=== PATIENT | male | born 1940 | race Caucasian/White ===

== ENCOUNTER 2017-05-09 12:58 | Inpatient (IN) | payer MEDICARE ==
[2017-05-04 15:45] LABS: BASOPHILS % (AUTO) 0.2 % (0-1); EOSINOPHILS # (AUTO) 0.2 X10'3 (0-0.9); EOSINOPHILS % (AUTO) 1.6 % (0-6); MEAN CORPUSCULAR HGB CONC 33.4 % (33.0-36.5); MEAN CORPUSCULAR VOLUME 86.8 FL (78-98); MEAN PLATELET VOLUME 7.1 FL (7.4-10.4); MONOCYTES # (AUTO) 0.9 X10'3 (0-0.9); MONOCYTES % (AUTO) 9.7 % (2-12); NEUTROPHILS # (AUTO) 7.5 X10'3 (1.8-7.7); NEUTROPHILS % (AUTO) 78.5 % (42-75); PRE OP HEMATOCRIT 39.1 % (42.0-52.0); PRE OP HEMOGLOBIN 13.1 g/dL (14.0-17.9); PRE OP PLATELET COUNT 304 X10'3 (140-440); RED CELL DISTRIBUTION WIDTH 16.1 % (11.5-14.5)
[2017-05-04 15:49] LABS: CLARITY,URINE Clear (Clear); COLOR,URINE Yellow (Yellow); GLUCOSE, URINE Negative (Neg); KETONES,URINE Negative (Neg); LEUKOCYTE ESTERASE ,URINE Negative (Neg); NITRITES, URINE Negative (Neg); OCCULT BLOOD,URINE Negative (Neg); PH,URINE 5.5 (4.8-8.0); PROTEIN,URINE Negative (Neg)
[2017-05-04 15:51] LABS: UA COLLECTION TYPE VOIDED
[2017-05-04 15:53] LABS: PRE OP PROTIME 10.7 SECONDS (9.0-12.0)
[2017-05-04 16:01] LABS: ALBUMIN 3.7 G/DL (3.4-5.0); ALBUMIN/GLOBULIN RATIO 1.1 (1.1-1.5); ALKALINE PHOSPHATASE 116 IU/L (46-116); BLOOD UREA NITROGEN 21 MG/DL (7-18); BUN/CREATININE RATIO 20.4 (5.4-32.0); CALCIUM 8.9 MG/DL (8.5-10.1); CHLORIDE 106 MMOL/L (99-107); CREATININE 1.03 MG/DL (0.60-1.10); PRE OP ALT 31 U/L (30-65); PRE OP ANION GAP 8 (8-16); PRE OP AST 24 U/L (10-37); PRE OP BILIRUB, TOTAL 0.3 MG/DL (0.0-1.0); PRE OP GLUCOSE 95 MG/DL (70-104); PRE OP POTASSIUM 4.5 MMOL/L (3.4-5.1); PRE OP SODIUM 142 MMOL/L (135-145); TOTAL CARBON DIOXIDE 27.7 MMOL/L (24-32); TOTAL PROTEIN 7.1 G/DL (6.4-8.2); eGFR 70 ML/MIN
[~2017-05-09] VITALS: Ht 188 cm; Wt 75.6 kg
[2017-05-09] VITALS (20 sets, daily range): BP systolic 107–161; BP diastolic 51–104
[~2017-05-09 12:58] MED LIST: ASPI-1265 PO; ATOR40TA72 PO; DOCU-28 PO; FAMO20TA8 PO; HYDR-3972 PO; LORA1TAB PO; NAPR-996 PO; TERA5CAP4 PO; cefazolin/dext.iso 2gm/50ml 50 ML IV ONE; famotidine 20mg tablet PO ONE; ringers solution, lacted 1,000 ML IV SCH; vancomycin inj 1,500 MG in normal saline 300ml IV soln IV ONE
[2017-05-09] MEDS ORDERED: ceFAZolin 1000mg inj ONE (13:11)
[2017-05-09] MEDS ORDERED: tranexamic acid inj. 1,000 MG in normal saline 100ml IV soln 90 ML IV ONE (14:30)
[2017-05-09] MEDS ORDERED: sevoflurane 250ml liquid IH ONE (14:31)
[2017-05-09] MEDS ORDERED: midazolam 2 mg/2 ml injection ONE (14:36)
[2017-05-09] MEDS ORDERED: fentaNYL /PF 50mcg/ml 5ml ampule ONE (14:37)
[2017-05-09] MEDS ORDERED: rocuronium 10mg/ml inj IV ONE (14:38)
[2017-05-09] MEDS ORDERED: propofol inj 20 ML IV ONE (14:38)
[2017-05-09] MEDS ORDERED: ringers solution, lacted 1,000 ML IV SCH (15:46)
[2017-05-09] MEDS ORDERED: proCHLORperazine 10 MG/2 ml inj IV PRN (15:50)
[2017-05-09] MEDS ORDERED: meperidine/PF 50mg/ml syringe IV PRN ×3 (15:50)
[2017-05-09] MEDS ORDERED: morphine 2 MG/ML inj. syringe IV PRN ×4 (15:50→19:25)
[2017-05-09] MEDS ORDERED: morphine 10mg/ml inj. ONE (16:06)
[2017-05-09] MEDS ORDERED: acetaminophen 325mg tablet PO PRN (17:25)
[2017-05-09] MEDS ORDERED: diphenhydrAMINE 25mg capsule PO PRN ×2 (17:25)
[2017-05-09] MEDS ORDERED: ondansetron/PF 4mg/2ml inj IV PRN (17:25)
[2017-05-09] MEDS ORDERED: bisacodyl 10mg suppository rectal RC PRN (17:25)
[2017-05-09] MEDS ORDERED: magnesium hydroxide 30ml (MOM) UD suspension PO PRN (17:25)
[2017-05-09] MEDS ORDERED: HYDROcodone/acetaminophen 10/325mg tab PO PRN ×2 (17:25)
[2017-05-09] MEDS: LORazepam 1 MG tablet PO SCH (18:24)
[2017-05-09] MEDS ORDERED: oxyCODONE/APAP 10/325mg tablet PO PRN (19:25)
[2017-05-09] MEDS: oxyCODONE/APAP 10/325mg tablet PO PRN ×2 (19:34→23:55)
[2017-05-09] MEDS ORDERED: vancomycin/NS 1 GM ADD-VANTAGE 250 ML IV SCH (20:00)
[2017-05-09] MEDS ORDERED: tranexamic acid inj. 750 MG in normal saline 100ml IV soln 100 ML IV ONE (20:30)
[2017-05-09] MEDS: terazosin 5mg capsule PO SCH (20:32)
[2017-05-09] MEDS: aspirin 81mg tab.chew PO SCH (20:32)
[2017-05-09] MEDS: sennosides 8.6mg tablet PO SCH (20:40)
[2017-05-09] MEDS: potassium cl 20mEq in 1/2 NS 1,000 ML IV SCH (22:14)
[2017-05-09] MEDS: cefazolin 1gm/NS 100mL 100 ML IV SCH (23:54)
[2017-05-10] VITALS (7 sets, daily range): BP systolic 95–119; BP diastolic 53–62
[2017-05-10] MEDS: oxyCODONE/APAP 10/325mg tablet PO PRN ×5 (04:03→20:26)
[2017-05-10 06:01] LABS: BASOPHILS % (AUTO) 0 % (0-1); EOSINOPHILS # (AUTO) 0.1 X10'3 (0-0.9); EOSINOPHILS % (AUTO) 0.9 % (0-6); HEMOGLOBIN 10.4 g/dl (14.0-17.9); LYMPHOCYTES # (AUTO) 0.5 X10'3 (1.1-4.8); LYMPHOCYTES % (AUTO) 3.2 % (21-51); MEAN CORPUSCULAR HEMOGLOBIN 29.1 PG (27.0-31.0); MEAN CORPUSCULAR HGB CONC 34.8 % (33.0-36.5); MEAN CORPUSCULAR VOLUME 83.6 FL (78-98); MEAN PLATELET VOLUME 6.6 FL (7.4-10.4); MONOCYTES # (AUTO) 1.1 X10'3 (0-0.9); MONOCYTES % (AUTO) 7.5 % (2-12); NEUTROPHILS # (AUTO) 12.7 X10'3 (1.8-7.7); NEUTROPHILS % (AUTO) 88.4 % (42-75); PLATELET COUNT 240 X10'3 (140-440); RED BLOOD COUNT 3.58 X10'6 (4.70-6.10); RED CELL DISTRIBUTION WIDTH 15.8 % (11.5-14.5); WHITE BLOOD COUNT 14.4 X10'3 (4.5-11.0)
[2017-05-10 06:35] LABS: ALANINE AMINOTRANSFERASE 23 U/L (12-78); ALBUMIN 2.9 G/DL (3.4-5.0); ALBUMIN/GLOBULIN RATIO 1.2 (1.1-1.5); ALKALINE PHOSPHATASE 82 IU/L (46-116); ANION GAP 7 (8-16); ASPARTATE AMINO TRANSFERASE 23 U/L (10-37); BILIRUBIN,TOTAL 0.5 MG/DL (0.1-1.0); BLOOD UREA NITROGEN 15 MG/DL (7-18); BUN/CREATININE RATIO 15.2 (5.4-32.0); CALCIUM 7.9 MG/DL (8.5-10.1); CHLORIDE 107 MMOL/L (99-107); CREATININE 0.99 MG/DL (0.60-1.10); GLUCOSE 136 MG/DL (70-104); POTASSIUM 4.3 MMOL/L (3.5-5.1); SODIUM 140 MMOL/L (135-145); TOTAL CARBON DIOXIDE 26.4 MMOL/L (24-32); TOTAL PROTEIN 5.4 G/DL (6.4-8.2); eGFR 74 ML/MIN
[2017-05-10] MEDS: cefazolin 1gm/NS 100mL 100 ML IV SCH (07:08)
[2017-05-10] MEDS: aspirin 81mg tab.chew PO SCH ×2 (07:12→16:48)
[2017-05-10] MEDS: LORazepam 1 MG tablet PO SCH ×2 (07:13→16:01)
[2017-05-10] MEDS: famotidine 20mg tablet PO SCH (07:14)
[2017-05-10] MEDS: potassium cl 20mEq in 1/2 NS 1,000 ML IV SCH ×2 (12:46→20:26)
[2017-05-10] MEDS ORDERED: MORPHINE 2MG in 2ml NS syringe IV PRN (17:30)
[2017-05-10] MEDS: sennosides 8.6mg tablet PO SCH (20:27)
[2017-05-10] MEDS: terazosin 5mg capsule PO SCH (20:27)
[2017-05-11] MEDS: LORazepam 1 MG tablet PO SCH ×2 (00:15→07:36)
[2017-05-11] MEDS: oxyCODONE/APAP 10/325mg tablet PO PRN ×3 (00:17→09:17)
[2017-05-11] MEDS ORDERED: ASPI-1265 PO (06:40)
[2017-05-11] MEDS ORDERED: PER10325T PO (06:40)
[2017-05-11 06:46] LABS: BASOPHILS % (AUTO) 0 % (0-1); EOSINOPHILS # (AUTO) 0.2 X10'3 (0-0.9); EOSINOPHILS % (AUTO) 1.4 % (0-6); HEMATOCRIT 28.4 % (42.0-52.0); HEMOGLOBIN 9.6 g/dl (14.0-17.9); LYMPHOCYTES # (AUTO) 0.4 X10'3 (1.1-4.8); LYMPHOCYTES % (AUTO) 2.9 % (21-51); MEAN CORPUSCULAR HEMOGLOBIN 29.2 PG (27.0-31.0); MEAN CORPUSCULAR HGB CONC 33.7 % (33.0-36.5); MEAN CORPUSCULAR VOLUME 86.5 FL (78-98); MONOCYTES # (AUTO) 1.2 X10'3 (0-0.9); MONOCYTES % (AUTO) 8.4 % (2-12); NEUTROPHILS # (AUTO) 12.6 X10'3 (1.8-7.7); NEUTROPHILS % (AUTO) 87.3 % (42-75); PLATELET COUNT 200 X10'3 (140-440); RED BLOOD COUNT 3.28 X10'6 (4.70-6.10); RED CELL DISTRIBUTION WIDTH 15.6 % (11.5-14.5); WHITE BLOOD COUNT 14.4 X10'3 (4.5-11.0)
[2017-05-11 07:18] LABS: ALANINE AMINOTRANSFERASE 24 U/L (12-78); ALBUMIN 2.5 G/DL (3.4-5.0); ALBUMIN/GLOBULIN RATIO 0.9 (1.1-1.5); ALKALINE PHOSPHATASE 70 IU/L (46-116); ANION GAP 7 (8-16); ASPARTATE AMINO TRANSFERASE 32 U/L (10-37); BILIRUBIN,TOTAL 0.4 MG/DL (0.1-1.0); BLOOD UREA NITROGEN 14 MG/DL (7-18); BUN/CREATININE RATIO 15.2 (5.4-32.0); CALCIUM 8.2 MG/DL (8.5-10.1); CHLORIDE 107 MMOL/L (99-107); CREATININE 0.92 MG/DL (0.60-1.10); GLUCOSE 123 MG/DL (70-104); POTASSIUM 4.5 MMOL/L (3.5-5.1); SODIUM 140 MMOL/L (135-145); TOTAL CARBON DIOXIDE 26.3 MMOL/L (24-32); TOTAL PROTEIN 5.4 G/DL (6.4-8.2); eGFR 80 ML/MIN
[2017-05-11] MEDS: famotidine 20mg tablet PO SCH (07:35)
[2017-05-11] MEDS: aspirin 81mg tab.chew PO SCH (07:35)
[2017-05-11] MEDS: potassium cl 20mEq in 1/2 NS 1,000 ML IV SCH (09:21)
== END 2017-05-11 11:05 | disposition home or self-care (01) | DRG 470 ==
LOC: PAS IN 12:58 → EDSTATUS 15:15 → ORTHO 4S 18:11
PROVIDERS: ADMIT Orthopaedic Surgery; ATTEND Orthopaedic Surgery
PROC: 0SR90JZ Replacement of Right Hip Joint with Synthetic Substitute, Open Approach (ICD-10-PCS; principal; 2017-05-09 14:31)
DX: M16.11 Unilateral primary osteoarthritis, right hip (principal); D50.0 Iron deficiency anemia secondary to blood loss (chronic); Z96.642 Presence of left artificial hip joint; E78.5 Hyperlipidemia, unspecified; I25.10 Atherosclerotic heart disease of native coronary artery without angina pectoris; K21.9 Gastro-esophageal reflux disease without esophagitis; F41.9 Anxiety disorder, unspecified; N40.0 Benign prostatic hyperplasia without lower urinary tract symptoms; Z85.72 Personal history of non-Hodgkin lymphomas
CPT/HCPCS: 36415; 80053; 81003; 85025; 85610; 85730; 86885; 86900; 86901; 86920; 87070; 93005; 97110; 97116; 97161; 97530; A6223; A6253; A6449; A7000; C1758; C1776; J0690; J2250; J2270; J2405; J2704; J3010; J3370; J7030; J7120

== ENCOUNTER 2017-12-21 06:51 | Day surgery (SDC) | payer MEDICARE ==
[~2017-12-21] VITALS: Ht 188 cm; Wt 78.0 kg
[2017-12-21] VITALS (15 sets, daily range): BP systolic 108–143; BP diastolic 61–89
[~2017-12-21 06:51] MED LIST changes: -ATOR40TA72 PO; -DOCU-28 PO; -HYDR-3972 PO; -NAPR-996 PO; +PER10325T PO; -cefazolin/dext.iso 2gm/50ml 50 ML IV ONE; -famotidine 20mg tablet PO ONE; -ringers solution, lacted 1,000 ML IV SCH; -vancomycin inj 1,500 MG in normal saline 300ml IV soln IV ONE
[2017-12-21] MEDS ORDERED: normal saline 1000ml 1,000 ML IV SCH (07:20)
[2017-12-21 07:50] LABS: BASOPHILS % (AUTO) 0.6 % (0-1); EOSINOPHILS # (AUTO) 0.2 X10'3 (0-0.9); EOSINOPHILS % (AUTO) 3.2 % (0-6); LYMPHOCYTES # (AUTO) 0.6 X10'3 (1.1-4.8); LYMPHOCYTES % (AUTO) 7.8 % (21-51); MEAN CORPUSCULAR HEMOGLOBIN 29.2 PG (27.0-31.0); MEAN CORPUSCULAR HGB CONC 32.7 % (33.0-36.5); MEAN CORPUSCULAR VOLUME 89.3 FL (78-98); MEAN PLATELET VOLUME 7.3 FL (7.4-10.4); MONOCYTES # (AUTO) 0.7 X10'3 (0-0.9); MONOCYTES % (AUTO) 9.8 % (2-12); NEUTROPHILS # (AUTO) 5.9 X10'3 (1.8-7.7); NEUTROPHILS % (AUTO) 78.6 % (42-75); PRE OP HEMOGLOBIN 12.1 g/dL (14.0-17.9); PRE OP PLATELET COUNT 216 X10'3 (140-440); RED BLOOD COUNT 4.15 X10'6 (4.70-6.10); RED CELL DISTRIBUTION WIDTH 15.7 % (11.5-14.5)
[2017-12-21 07:57] LABS: ALBUMIN 3.4 G/DL (3.4-5.0); ANION GAP 5 (8-16); BLOOD UREA NITROGEN 25 MG/DL (7-18); BUN/CREATININE RATIO 27.2 (5.4-32.0); CALCIUM 8.8 MG/DL (8.5-10.1); CHLORIDE 109 MMOL/L (99-107); CREATININE 0.92 MG/DL (0.60-1.10); GLUCOSE 92 MG/DL (70-104); POTASSIUM 4.3 MMOL/L (3.5-5.1); SODIUM 142 MMOL/L (135-145); TOTAL CARBON DIOXIDE 28.5 MMOL/L (24-32); eGFR 80 ML/MIN
[2017-12-21] MEDS ORDERED: OXYC-150 PO (08:31)
[2017-12-21] MEDS ORDERED: ASPI81TA52 PO (08:31)
[2017-12-21] MEDS ORDERED: ATOR20TA PO (08:31)
[2017-12-21] MEDS ORDERED: NAPR-56 PO (08:31)
[2017-12-21] MEDS ORDERED: DOCU100C41 PO (08:31)
[2017-12-21] MEDS ORDERED: midazolam 2 mg/2 ml injection ONE (09:04)
[2017-12-21] MEDS ORDERED: fentaNYL/PF 50MCG/1 ML 2ML syringe ONE (09:04)
== END 2017-12-21 12:30 | disposition home or self-care (01) ==
LOC: SSTAY O 06:51
PROVIDERS: ATTEND Radiology Diagnostic Radiology
DX: C34.31 Malignant neoplasm of lower lobe, right bronchus or lung (principal); I25.10 Atherosclerotic heart disease of native coronary artery without angina pectoris; K21.9 Gastro-esophageal reflux disease without esophagitis; N40.0 Benign prostatic hyperplasia without lower urinary tract symptoms; E78.5 Hyperlipidemia, unspecified; M19.90 Unspecified osteoarthritis, unspecified site; Z98.41 Cataract extraction status, right eye; Z98.42 Cataract extraction status, left eye; Z72.89 Other problems related to lifestyle; Z85.71 Personal history of Hodgkin lymphoma; Z92.21 Personal history of antineoplastic chemotherapy; Z92.3 Personal history of irradiation; Z96.643 Presence of artificial hip joint, bilateral; Z79.82 Long term (current) use of aspirin; Z79.891 Long term (current) use of opiate analgesic; Z86.69 Personal history of other diseases of the nervous system and sense organs; Z87.828 Personal history of other (healed) physical injury and trauma; Z86.74 Personal history of sudden cardiac arrest; Z87.891 Personal history of nicotine dependence; Z98.890 Other specified postprocedural states; Z88.8 Allergy status to other drugs, medicaments and biological substances; Z79.899 Other long term (current) drug therapy
CPT/HCPCS: 32405; 36415; 71045; 77012; 80048; 85025; 88184; 88185; 99152; 99153; J2250; J3010; J7030

== ENCOUNTER 2018-02-23 07:30 | Inpatient (IN) | payer MEDICARE ==
[2018-02-15 16:36] LABS: BASOPHILS % (AUTO) 0.5 % (0-1); EOSINOPHILS # (AUTO) 0.1 X10'3 (0-0.9); EOSINOPHILS % (AUTO) 1.7 % (0-6); LYMPHOCYTES # (AUTO) 0.9 X10'3 (1.1-4.8); LYMPHOCYTES % (AUTO) 12.8 % (21-51); MEAN CORPUSCULAR HGB CONC 32.8 % (33.0-36.5); MEAN CORPUSCULAR VOLUME 88.5 FL (78-98); MEAN PLATELET VOLUME 7.2 FL (7.4-10.4); MONOCYTES # (AUTO) 0.5 X10'3 (0-0.9); MONOCYTES % (AUTO) 7.2 % (2-12); NEUTROPHILS # (AUTO) 5.7 X10'3 (1.8-7.7); NEUTROPHILS % (AUTO) 77.8 % (42-75); PRE OP HEMOGLOBIN 13.1 g/dL (14.0-17.9); PRE OP PLATELET COUNT 232 X10'3 (140-440); RED BLOOD COUNT 4.52 X10'6 (4.70-6.10); RED CELL DISTRIBUTION WIDTH 14.9 % (11.5-14.5)
[2018-02-15 16:39] LABS: CLARITY,URINE CLEAR (Clear); COLOR,URINE YELLOW (Yellow); GLUCOSE, URINE NEGATIVE (Neg); KETONES,URINE NEGATIVE (Neg); LEUKOCYTE ESTERASE ,URINE NEGATIVE (Neg); NITRITES, URINE NEGATIVE (Neg); OCCULT BLOOD,URINE TRACE-LYSED (Neg); PROTEIN,URINE NEGATIVE (Neg); UROBILINOGEN,URINE 0.2 E.U/dL (0.2-1.0)
[2018-02-15 16:46] LABS: UA COLLECTION TYPE CLN CATCH MIDSTREAM
[2018-02-15 16:50] LABS: ALBUMIN/GLOBULIN RATIO 1.3 (1.1-1.5); ALKALINE PHOSPHATASE 100 IU/L (46-116); BLOOD UREA NITROGEN 25 MG/DL (7-18); BUN/CREATININE RATIO 21.6 (5.4-32.0); CALCIUM 9.1 MG/DL (8.5-10.1); CHLORIDE 105 MMOL/L (99-107); CREATININE 1.16 MG/DL (0.60-1.10); HEMOGLOBIN A1C 5.4 % (4.5-6.2); PRE OP ALT 34 U/L (30-65); PRE OP ANION GAP 12 (8-16); PRE OP AST 39 U/L (10-37); PRE OP BILIRUB, TOTAL 0.3 MG/DL (0.0-1.0); PRE OP GLUCOSE 113 MG/DL (70-104); PRE OP SODIUM 143 MMOL/L (135-145); TOTAL CARBON DIOXIDE 25.8 MMOL/L (24-32); eGFR 61 ML/MIN
[2018-02-15 16:54] LABS: PRE OP INR 1.1 INR
[2018-02-15 16:58] LABS: BACTERIA,URINE NONE SEEN /HPF (Neg); MUCUS STRANDS FEW /LPF (Neg); SQUAMOUS EPITHELIAL CELL,UR NONE SEEN /LPF (FEW); TRANSITIONAL EPI CELLS,URINE FEW /HPF; WBC,URINE 0-4 /HPF (0-4)
[2018-02-20 07:55] LABS: ABG BASE EXCESS -0.6 mmol/L (-2.0-3.0); ABG HCO3 23.1 mmol/L (22.0-26.0); ABG OXYGEN SATURATION 96.7 % (95-98); ABG PCO2 (T) 34.8 mmHg (35.0-48.0); ABG PH (T) 7.439 (7.350-7.450); ABG PO2 (T) 87.1 mmHg (83-108); ALLEN'S TEST Positive; FCOHb 1.5 % (0.5-1.5); FMetHb 0.3 % (0.3-1.12); TOTAL HEMOGLOBIN 13.7 G/dl (14.0-18.0)
[~2018-02-23] VITALS: Ht 188 cm; Wt 77.9 kg
[2018-02-23] VITALS (19 sets, daily range): BP systolic 96–159; BP diastolic 60–78
[~2018-02-23 07:30] MED LIST changes: -ASPI-1265 PO; +ASPI81TA52 PO; +ATOR20TA PO; +DOCU100C41 PO; +NAPR-56 PO; +OXYC-150 PO; -PER10325T PO; +albuterol 2.5 MG/3 ML nebule NEB ONE; +cefazolin/dext.iso 2gm/50ml 50 ML IV ONE; +famotidine 20mg tablet PO ONE; +ringers solution, lacted 1,000 ML IV SCH
[2018-02-23] MEDS ORDERED: LIDOcaine 1% (10mg/ml) 2ml vial ONE (09:55)
[2018-02-23] MEDS ORDERED: BUPIVAcaine/PF 2.5mg/ml (0.25%) 10ml vial ONE ×2 (09:56→14:22)
[2018-02-23] MEDS ORDERED: fentaNYL /PF 50mcg/ml 5ml ampule ONE ×2 (12:21→12:32)
[2018-02-23] MEDS ORDERED: sevoflurane 250ml liquid IH ONE (12:21)
[2018-02-23] MEDS ORDERED: MIDAZolam 5mg/5ml vial ONE ×2 (12:21→12:30)
[2018-02-23] MEDS ORDERED: albumin (Human) 5% 250ml 250 ML IV ONE ×2 (13:12)
[2018-02-23] MEDS ORDERED: propofol inj 20 ML IV ONE (13:12)
[2018-02-23] MEDS ORDERED: dexamethasone sod phosphate 4mg/ml inj. ONE (13:14)
[2018-02-23] MEDS ORDERED: ondansetron/PF 4mg/2ml inj ONE (13:14)
[2018-02-23] MEDS ORDERED: rocuronium 10mg/ml inj IV ONE ×2 (13:14)
[2018-02-23] MEDS ORDERED: LIDOcaine 1%/PF 5ML 10 MG/ML VIAL ONE (13:14)
[2018-02-23] MEDS ORDERED: ringers solution, lacted 1,000 ML IV SCH (13:59)
[2018-02-23] MEDS ORDERED: enalaprilat dihydrate 2.5mg/2ml vial IV PRN (14:00)
[2018-02-23] MEDS ORDERED: morphine 4 MG/ML inj SYRINge IV PRN ×4 (14:00→16:50)
[2018-02-23] MEDS ORDERED: hydrALAZINE 20mg/ml inj. IV PRN (14:00)
[2018-02-23] MEDS ORDERED: fentaNYL/PF 50MCG/1 ML 2ML syringe IV PRN (14:00)
[2018-02-23] MEDS ORDERED: ondansetron/PF 4mg/2ml inj IV PRN (14:00)
[2018-02-23] MEDS ORDERED: neostigmine methylsulfate 1 MG/ML 10ml vial ONE (16:08)
[2018-02-23] MEDS ORDERED: glycopyrrolate 0.2mg/ml inj ONE (16:08)
[2018-02-23] MEDS ORDERED: hydrALAZINE 20mg/ml inj. IV ONE (16:21)
[2018-02-23] MEDS ORDERED: naloxone 0.4 mg/ml inj IV PRN ×2 (16:50→20:00)
[2018-02-23] MEDS ORDERED: HYDROcodone/acetaminophen 10/325mg tab PO PRN ×2 (16:50)
[2018-02-23] MEDS ORDERED: CADD PCA waste documentation MC PRN (16:50)
[2018-02-23] MEDS ORDERED: metoclopramide 5 mg/ml inj IV PRN (16:50)
[2018-02-23] MEDS ORDERED: labetalol 5mg/ml 20ml inj. IV ONE (16:53)
--- NOTE | 2018-02-23 17:00 | NUR ---
Received from OR via bed, accompanied by Anesthesiologist. Report received. Initial physical assessment done and recorded.
[2018-02-23 17:25] LABS: ABG BASE EXCESS -5.4 mmol/L (-2.0-3.0); ABG HCO3 20.8 mmol/L (22.0-26.0); ABG OXYGEN SATURATION 98.9 % (95-98); ABG PH (T) 7.302 (7.350-7.450); ABG PO2 (T) 185.1 mmHg (83-108); FCOHb 0.5 % (0.5-1.5); FLOW 9 L/min; FMetHb 0.2 % (0.3-1.12); FO2Hb 98.2 % (94-100); TOTAL HEMOGLOBIN 13.3 G/dl (14.0-18.0)
[2018-02-23] MEDS: fentaNYL/PF 50MCG/1 ML 2ML syringe IV PRN ×2 (17:29→17:49)
--- NOTE | 2018-02-23 18:00 | NUR ---
Discharge criteria met, report to receiving floor. Transferred to room in stable condition.
--- NOTE | 2018-02-23 18:10 | NUR ---
Patient in room MED 316. I have received report from Art and had the opportunity to ask questions and assume patient care.
[2018-02-23] MEDS: HYDROmorphone/NS 1 mg/ml CADD 50 ML IV SCH ×3 (20:55→23:00)
[2018-02-23] MEDS: normal saline 1000ml 1,000 ML IV SCH (20:56)
[2018-02-24] MEDS: ceFAZolin inj. 1,000 MG in dextrose 5%-water 50ml 50 ML IV SCH ×2 (00:28→07:33)
[2018-02-24 00:45] VITALS: BP 102/68
[2018-02-24] MEDS: HYDROmorphone/NS 1 mg/ml CADD 50 ML IV SCH ×12 (01:00→23:00)
[2018-02-24 03:00] VITALS: BP 108/62
[2018-02-24] MEDS ORDERED: LORazepam 0.5 MG tablet PO PRN (03:10)
[2018-02-24] MEDS: ondansetron/PF 4mg/2ml inj IV PRN ×2 (04:00→17:00)
[2018-02-24 04:30] LABS: BASOPHILS % (AUTO) 0.3 % (0-1); EOSINOPHILS % (AUTO) 0 % (0-6); HEMATOCRIT 37.8 % (42.0-52.0); HEMOGLOBIN 12.5 g/dl (14.0-17.9); LYMPHOCYTES # (AUTO) 0.3 X10'3 (1.1-4.8); LYMPHOCYTES % (AUTO) 2.3 % (21-51); MEAN CORPUSCULAR HEMOGLOBIN 29.4 PG (27.0-31.0); MEAN CORPUSCULAR HGB CONC 33.1 % (33.0-36.5); MEAN CORPUSCULAR VOLUME 88.9 FL (78-98); MEAN PLATELET VOLUME 7.4 FL (7.4-10.4); MONOCYTES # (AUTO) 0.7 X10'3 (0-0.9); MONOCYTES % (AUTO) 5.3 % (2-12); NEUTROPHILS # (AUTO) 12.9 X10'3 (1.8-7.7); NEUTROPHILS % (AUTO) 92.1 % (42-75); PLATELET COUNT 244 X10'3 (140-440); RED BLOOD COUNT 4.25 X10'6 (4.70-6.10); RED CELL DISTRIBUTION WIDTH 13.8 % (11.5-14.5); WHITE BLOOD COUNT 13.9 X10'3 (4.5-11.0)
[2018-02-24 04:38] LABS: ALANINE AMINOTRANSFERASE 32 U/L (12-78); ALBUMIN 3.4 G/DL (3.4-5.0); ALBUMIN/GLOBULIN RATIO 1.2 (1.1-1.5); ALKALINE PHOSPHATASE 76 IU/L (46-116); ANION GAP 9 (8-16); ASPARTATE AMINO TRANSFERASE 36 U/L (10-37); BILIRUBIN,TOTAL 0.4 MG/DL (0.1-1.0); BLOOD UREA NITROGEN 21 MG/DL (7-18); BUN/CREATININE RATIO 20.6 (5.4-32.0); CALCIUM 8.2 MG/DL (8.5-10.1); CHLORIDE 103 MMOL/L (99-107); CREATININE 1.02 MG/DL (0.60-1.10); GLUCOSE 140 MG/DL (70-104); MAGNESIUM 1.6 MG/DL (1.5-2.4); PHOSPHORUS 3.4 MG/DL (2.3-4.5); POTASSIUM 4.4 MMOL/L (3.5-5.1); SODIUM 138 MMOL/L (135-145); TOTAL CARBON DIOXIDE 25.7 MMOL/L (24-32); TOTAL PROTEIN 6.3 G/DL (6.4-8.2); eGFR 71 ML/MIN
--- NOTE | 2018-02-24 06:00 | NUR ---
Patient in room MED 316. I have received report from DANDY Bradford and had the opportunity to ask questions and assume patient care.
[2018-02-24] MEDS ORDERED: LORA0.5T PO (06:58)
[2018-02-24 07:00] VITALS: BP 108/61
[2018-02-24 11:00] VITALS: BP 115/69
[2018-02-24] MEDS: LORazepam 0.5 MG tablet PO PRN ×2 (14:11→21:50)
--- NOTE | 2018-02-24 15:30 | NUR ---
Discontinued Central line to the Right neck. The catheter remained intact and held pressure for 5 minutes. Cleansed site and applied new sterile 2x2 to entry site and applied Tegaderm. Patient tolerated well.
[2018-02-24 18:00] VITALS: BP 117/65
--- NOTE | 2018-02-24 18:14 | NUR ---
Problems reprioritized. Patient report given, questions answered & plan of care reviewed with Sanchez Randolph RN.
--- NOTE | 2018-02-24 18:15 | NUR ---
Patient in room MED 316. I have received report from Lenore and had the opportunity to ask questions and assume patient care.
--- NOTE | 2018-02-24 18:15 | NUR ---
Problems reprioritized. Patient report given, questions answered & plan of care reviewed with Sanchez Randolph RN.
--- NOTE | 2018-02-24 18:16 | NUR ---
Orienteer documentation: I have reviewed and agree with all interventions, assessments performed and documented by Janis DORMAN.
[2018-02-24] MEDS: atorvastatin 20mg tablet PO SCH (20:19)
[2018-02-24 22:00] VITALS: BP 129/72
[2018-02-25] VITALS (7 sets, daily range): BP systolic 124–147; BP diastolic 73–93
[2018-02-25] MEDS: HYDROmorphone/NS 1 mg/ml CADD 50 ML IV SCH ×12 (01:00→23:00)
[2018-02-25] MEDS: ondansetron/PF 4mg/2ml inj IV PRN (04:22)
[2018-02-25] MEDS: LORazepam 0.5 MG tablet PO PRN ×3 (05:38→21:46)
[2018-02-25] MEDS: famotidine 20mg tablet PO SCH (09:09)
[2018-02-25] MEDS: docusate sod 100mg capsule PO SCH (09:09)
[2018-02-25] MEDS: aspirin 81mg tablet.DR PO SCH (09:10)
--- NOTE | 2018-02-25 11:25 | NUR ---
DR. MODI INTO SEE PATIENT AT THIS TIME; CHEST TUBE REMOVED, PATIENT TOLERATED WELL. PLAN IS TO WEAN OFF O2, AND TRANSITION TO PO PAIN MEDICATION. HOB UP CALL LIGHT IN REACH. Addendum: 02/25/18 at 1131 by Elisabet Tapia RN Amended: Links added.
[2018-02-25] MEDS: normal saline 1000ml 1,000 ML IV SCH (19:59)
[2018-02-25] MEDS ORDERED: terazosin 5mg capsule PO SCH (21:00)
[2018-02-25] MEDS: atorvastatin 20mg tablet PO SCH (21:50)
[2018-02-26] MEDS: HYDROmorphone/NS 1 mg/ml CADD 50 ML IV SCH ×4 (01:00→07:00)
[2018-02-26 02:00] VITALS: BP 114/73
[2018-02-26] MEDS: LORazepam 0.5 MG tablet PO PRN ×2 (05:47→13:26)
--- NOTE | 2018-02-26 06:09 | NUR ---
Problems reprioritized. Patient report given, questions answered & plan of care reviewed with Kevin DORMAN.
[2018-02-26 07:00] VITALS: BP 117/72
[2018-02-26] MEDS: famotidine 20mg tablet PO SCH (07:34)
[2018-02-26] MEDS: aspirin 81mg tablet.DR PO SCH (07:35)
[2018-02-26] MEDS: docusate sod 100mg capsule PO SCH (07:38)
[2018-02-26 07:46] LABS: BASOPHILS % (AUTO) 0.2 % (0-1); EOSINOPHILS # (AUTO) 0.1 X10'3 (0-0.9); EOSINOPHILS % (AUTO) 0.7 % (0-6); LYMPHOCYTES # (AUTO) 0.5 X10'3 (1.1-4.8); LYMPHOCYTES % (AUTO) 4.1 % (21-51); MEAN CORPUSCULAR HEMOGLOBIN 29.2 PG (27.0-31.0); MEAN CORPUSCULAR HGB CONC 33.2 % (33.0-36.5); MEAN CORPUSCULAR VOLUME 88.1 FL (78-98); MEAN PLATELET VOLUME 7.1 FL (7.4-10.4); MONOCYTES % (AUTO) 8.4 % (2-12); NEUTROPHILS # (AUTO) 10.2 X10'3 (1.8-7.7); NEUTROPHILS % (AUTO) 86.6 % (42-75); PLATELET COUNT 196 X10'3 (140-440); RED BLOOD COUNT 3.75 X10'6 (4.70-6.10); RED CELL DISTRIBUTION WIDTH 14.5 % (11.5-14.5); WHITE BLOOD COUNT 11.8 X10'3 (4.5-11.0)
--- NOTE | 2018-02-26 07:47 | NUR ---
Patient in room MED 316. I have received report from DANDY Centeno and had the opportunity to ask questions and assume patient care.
[2018-02-26 08:08] LABS: ALANINE AMINOTRANSFERASE 45 U/L (12-78); ALBUMIN 3.1 G/DL (3.4-5.0); ALBUMIN/GLOBULIN RATIO 1.1 (1.1-1.5); ALKALINE PHOSPHATASE 69 IU/L (46-116); ANION GAP 7 (8-16); ASPARTATE AMINO TRANSFERASE 66 U/L (10-37); BILIRUBIN,TOTAL 0.7 MG/DL (0.1-1.0); BLOOD UREA NITROGEN 17 MG/DL (7-18); BUN/CREATININE RATIO 20.5 (5.4-32.0); CALCIUM 8.3 MG/DL (8.5-10.1); CHLORIDE 104 MMOL/L (99-107); CREATININE 0.83 MG/DL (0.60-1.10); GLUCOSE 111 MG/DL (70-104); POTASSIUM 3.7 MMOL/L (3.5-5.1); SODIUM 138 MMOL/L (135-145); TOTAL CARBON DIOXIDE 26.6 MMOL/L (24-32); TOTAL PROTEIN 5.8 G/DL (6.4-8.2); eGFR 90 ML/MIN
[2018-02-26] MEDS ORDERED: oxyCODONE/APAP 10/325mg tablet PO PRN (08:25)
[2018-02-26] MEDS ORDERED: oxyCODONE IR 5mg (immed. release) tablet PO PRN (09:15)
[2018-02-26 11:00] VITALS: BP 127/67
--- NOTE | 2018-02-26 15:26 | NUR ---
Nicholas came and saw the pt. this morning and told us that if he had a good day and his pain was managed and the pt. did not require O2 then it would be ok for discharge. The pt. did meet all requirements for a safe discharge. I did inform the pt. that it would be Tuesday before the home health nurse is able to visit him. Nicholas did want the pt. to stay until 1600. The patients showed up at 1515 and stated that they need to leave now due to the weather and the possibly of it to snow. I gave the patient all his discharge instructions.
== END 2018-02-26 14:55 | disposition home health service (06) | DRG 164 ==
LOC: EDSTATUS 07:30 → PAS IN 10:56 → MED 3N 17:00
PROVIDERS: ADMIT Thoracic Surgery (Cardiothoracic Vascular Surgery); ATTEND Thoracic Surgery (Cardiothoracic Vascular Surgery)
PROC: 07T74ZZ Resection of Thorax Lymphatic, Percutaneous Endoscopic Approach (ICD-10-PCS; 2018-02-23)
PROC: 02HV33Z Insertion of Infusion Device into Superior Vena Cava, Percutaneous Approach (ICD-10-PCS; 2018-02-23)
PROC: B548ZZA Ultrasonography of Superior Vena Cava, Guidance (ICD-10-PCS; 2018-02-23)
PROC: 03HY32Z Insertion of Monitoring Device into Upper Artery, Percutaneous Approach (ICD-10-PCS; 2018-02-23)
PROC: 0BJ08ZZ Inspection of Tracheobronchial Tree, Via Natural or Artificial Opening Endoscopic (ICD-10-PCS; 2018-02-23)
PROC: 0BTF4ZZ Resection of Right Lower Lung Lobe, Percutaneous Endoscopic Approach (ICD-10-PCS; principal; 2018-02-23 12:15)
DX: C34.31 Malignant neoplasm of lower lobe, right bronchus or lung (principal); J93.82 Other air leak; J43.9 Emphysema, unspecified; E78.5 Hyperlipidemia, unspecified; F12.90 Cannabis use, unspecified, uncomplicated; M19.90 Unspecified osteoarthritis, unspecified site; F40.240 Claustrophobia; I25.10 Atherosclerotic heart disease of native coronary artery without angina pectoris; Z96.641 Presence of right artificial hip joint; I25.2 Old myocardial infarction; Z95.5 Presence of coronary angioplasty implant and graft; Z98.49 Cataract extraction status, unspecified eye; Z79.82 Long term (current) use of aspirin; Z79.899 Other long term (current) drug therapy; Z85.72 Personal history of non-Hodgkin lymphomas; Z92.21 Personal history of antineoplastic chemotherapy; Z87.891 Personal history of nicotine dependence; Z80.1 Family history of malignant neoplasm of trachea, bronchus and lung
CPT/HCPCS: 36415; 36600; 71045; 71046; 80053; 81001; 82803; 82948; 83036; 83735; 84100; 85018; 85025; 85610; 85730; 86885; 86900; 86901; 87070; 88305; 88309; 93005; 94060; 94727; 94729; 94760; 97116; 97161; A6449; A7000; A7048; C1758; G0378; J0360; J0690; J1100; J1170; J2001; J2250; J2270; J2405; J2704; J2710; J3010; J3490; J7030; J7060; J7120; P9045

== ENCOUNTER 2019-04-05 08:21 | Day surgery (SDC) | payer MEDICARE ==
[~2019-04-05] VITALS: Ht 188 cm; Wt 76.8 kg
[~2019-04-05 08:21] MED LIST changes: +LORA0.5T PO; -LORA1TAB PO; -albuterol 2.5 MG/3 ML nebule NEB ONE; -cefazolin/dext.iso 2gm/50ml 50 ML IV ONE; -famotidine 20mg tablet PO ONE; -ringers solution, lacted 1,000 ML IV SCH
[2019-04-05 09:01] VITALS: BP 120/77
[2019-04-05 10:15] VITALS: BP 128/78
[2019-04-05 10:30] VITALS: BP 137/79
[2019-04-05 10:45] VITALS: BP 132/83
== END 2019-04-05 10:55 | disposition home or self-care (01) ==
LOC: SSTAY O 08:21
PROVIDERS: ATTEND Radiology Diagnostic Radiology
DX: C77.0 Secondary and unspecified malignant neoplasm of lymph nodes of head, face and neck (principal); Z85.71 Personal history of Hodgkin lymphoma; Z85.118 Personal history of other malignant neoplasm of bronchus and lung; Z90.2 Acquired absence of lung [part of]
CPT/HCPCS: 10005; 38505; 76942

== ENCOUNTER 2020-04-03 11:08 | Day surgery (SDC) | payer MEDICARE ==
[~2020-04-03] VITALS: Ht 188 cm; Wt 74.0 kg
[~2020-04-03 11:08] MED LIST changes: -FAMO20TA8 PO; -TERA5CAP4 PO
[2020-04-03] MEDS ORDERED: normal saline 1000ml 1,000 ML IV PRN (11:25)
[2020-04-03] MEDS ORDERED: tPA-cathflo 2 MG/2 ml IV flush ONE (11:29)
[2020-04-03] MEDS ORDERED: heparin sodium, porcine/PF 100unit/ml 5ML syringe ONE (11:29)
[2020-04-03] MEDS ORDERED: IRON18TA PO (11:46)
[2020-04-03 12:00] VITALS: BP 141/90
--- NOTE | 2020-04-03 13:11 | NUR ---
PATIENT PRESENTED WITH COMPLAINTS OF NO BLOOD RETURN FROM PORT. PATIENT LAID SUPINE, PREPPED AND DRAPED IN STERILE FASHION. PATIENT'S PORT ACCESSED BY IR RN X1 ATTEMPT, BLOOD RETURN IMMEDIATELY NOTED FROM PORT. LINE FLUSHED WITH 10ML OF NORMAL SALINE AND LOCKED WITH 5ML HEPARIN 100U/ML. HERNANDEZ NEEDLE REMOVED, BANDAID PLACED OVER ACCESS SITE. PATIENT TOLERATED ALL ASPECTS WELL. BED LOW/LOCKED, REPORT GIVEN TO SSU RN
== END 2020-04-03 12:05 | disposition home or self-care (01) ==
LOC: SSTAY O 11:08
PROVIDERS: ATTEND Radiology Diagnostic Radiology
DX: T82.598A Other mechanical complication of other cardiac and vascular devices and implants, initial encounter (principal); C81.90 Hodgkin lymphoma, unspecified, unspecified site
CPT/HCPCS: 96523; J1642; J2997

== ENCOUNTER 2021-01-04 18:54 | Inpatient (IN) | payer MEDICARE ==
[~2021-01-04] VITALS: Ht 190.5 cm; Wt 83.0 kg
[~2021-01-04 18:54] MED LIST changes: +IRON18TA PO
--- NOTE | 2021-01-04 19:22 | NUR ---
EKG UNABLE TO BE OBTAIN UPON ARRIVAL DUE TO ARTIFACT AND RESPIRATORY DISTRESS.
[2021-01-04 20:04] LABS: BASOPHILS % (AUTO) 0.1 % (0-1); EOSINOPHILS % (AUTO) 0 % (0-6); HEMATOCRIT 41.2 % (42.0-52.0); HEMOGLOBIN 14.1 g/dl (14.0-17.9); LYMPHOCYTES # (AUTO) 0.5 X10'3 (1.1-4.8); LYMPHOCYTES % (AUTO) 2.4 % (21-51); MEAN CORPUSCULAR HEMOGLOBIN 29.4 PG (27.0-31.0); MEAN CORPUSCULAR HGB CONC 34.2 g/dL (33.0-36.5); MEAN CORPUSCULAR VOLUME 86.2 FL (78-98); MEAN PLATELET VOLUME 6.7 FL (7.4-10.4); MONOCYTES # (AUTO) 1.2 X10'3 (0-0.9); MONOCYTES % (AUTO) 6.3 % (2-12); NEUTROPHILS # (AUTO) 17.9 X10'3 (1.8-7.7); NEUTROPHILS % (AUTO) 91.2 % (42-75); PLATELET COUNT 379 X10'3 (140-440); RED BLOOD COUNT 4.78 X10'6 (4.70-6.10); RED CELL DISTRIBUTION WIDTH 13.7 % (11.5-14.5); WHITE BLOOD COUNT 19.6 X10'3 (4.5-11.0)
[2021-01-04 20:15] LABS: ALANINE AMINOTRANSFERASE 71 U/L (12-78); ALBUMIN 3.4 G/DL (3.4-5.0); ALBUMIN/GLOBULIN RATIO 0.9 (1.1-1.5); ALKALINE PHOSPHATASE 165 IU/L (46-116); ANION GAP 17 (8-16); ASPARTATE AMINO TRANSFERASE 68 U/L (10-37); BILIRUBIN,TOTAL 0.9 MG/DL (0.1-1.0); BLOOD UREA NITROGEN 30 MG/DL (7-18); BUN/CREATININE RATIO 24.4 (5.4-32.0); CALCIUM 8.6 MG/DL (8.5-10.1); CHLORIDE 89 MMOL/L (99-107); CREATININE 1.23 MG/DL (0.60-1.10); GLUCOSE 166 MG/DL (70-104); POTASSIUM 5.1 MMOL/L (3.5-5.1); SODIUM 125 MMOL/L (135-145); TOTAL CARBON DIOXIDE 19.2 MMOL/L (24-32); TOTAL PROTEIN 7.1 G/DL (6.4-8.2); eGFR 57 ML/MIN
[2021-01-04 20:24] LABS: MAGNESIUM 2.3 MG/DL (1.5-2.4)
[2021-01-04 20:27] LABS: D-DIMER 15.89 MG/L FEU (0-0.50); PARTIAL THROMBOPLASTIN TIME 27 SECONDS (22-32)
[2021-01-04] MEDS ORDERED: CefTRIAXone/D5W-Rocephin 1gm 50 ML IV ONE (20:30)
[2021-01-04] MEDS ORDERED: azithromycin/NS 500mg/250ml 250 ML IV ONE (20:30)
[2021-01-04] MEDS ORDERED: normal saline 1000ML IV soln IV ONE (20:30)
[2021-01-04] MEDS ORDERED: iohexol 350MG/ML 100ml bottle IV ONE (20:37)
[2021-01-04] MEDS ORDERED: ondansetron 4mg rapidly disintigrating tab PO PRN (22:55)
[2021-01-04] MEDS ORDERED: magnesium hydroxide 30ml (MOM) UD suspension PO PRN (22:55)
[2021-01-04] MEDS ORDERED: diphenhydrAMINE 50 mg/ml inj IV PRN (22:55)
[2021-01-04] MEDS ORDERED: morphine 2 MG/ML inj. syringe IV PRN ×2 (22:55)
[2021-01-04] MEDS ORDERED: HYDROcodone/acetaminophen 5mg/325mg tablet PO PRN (22:55)
[2021-01-04] MEDS ORDERED: mag hydrox/Alum hydrox/simeth 30ml oral suspension PO PRN (22:55)
[2021-01-04] MEDS: normal saline 1000ml 1,000 ML IV SCH (22:55)
[2021-01-04] MEDS ORDERED: ondansetron/PF 4mg/2ml inj IV PRN (22:55)
[2021-01-04] MEDS ORDERED: diphenhydrAMINE 25mg capsule PO PRN (22:55)
[2021-01-04] MEDS ORDERED: bisacodyl 10mg suppository rectal RC PRN (22:55)
[2021-01-04] MEDS ORDERED: acetaminophen 650mg rectal suppository RC PRN (22:55)
[2021-01-04] MEDS ORDERED: acetaminophen 325mg tablet PO PRN ×2 (22:55)
--- NOTE | 2021-01-04 23:00 | NUR ---
Pt requested for sleep medication. Called Dr. Wilkerson and he prescribed Restoril PRN. Addendum: 01/05/21 at 0241 by Evelin Black RN Wrong patient.
[2021-01-05 00:09] LABS: CREATINE KINASE 204 U/L (39-308); LIPASE < 50 U/L (73-393); PHOSPHORUS 2.5 MG/DL (2.3-4.5)
--- NOTE | 2021-01-05 00:30 | NUR ---
Patient in room PCU 3024. I have received report from Bindu DORMAN and had the opportunity to ask questions and assume patient care.
[2021-01-05] MEDS: ipratropium/albuterol 3ml nebule NEB PRN ×2 (01:15→20:20)
[2021-01-05] MEDS ORDERED: LORazepam 0.5 MG tablet PO PRN (01:25)
[2021-01-05] MEDS: LORazepam 1 MG tablet PO PRN ×4 (02:09→20:55)
[2021-01-05 06:00] VITALS: BP 130/99
--- NOTE | 2021-01-05 06:34 | NUR ---
Problems reprioritized. Patient report given, questions answered & plan of care reviewed with Kaylie DORMAN.
[2021-01-05 07:05] LABS: BASOPHILS % (AUTO) 0.1 % (0-1); EOSINOPHILS % (AUTO) 0 % (0-6); HEMATOCRIT 38.8 % (42.0-52.0); HEMOGLOBIN 12.9 g/dl (14.0-17.9); LYMPHOCYTES # (AUTO) 0.5 X10'3 (1.1-4.8); MEAN CORPUSCULAR HEMOGLOBIN 28.8 PG (27.0-31.0); MEAN CORPUSCULAR HGB CONC 33.2 g/dL (33.0-36.5); MEAN CORPUSCULAR VOLUME 86.7 FL (78-98); MEAN PLATELET VOLUME 6.9 FL (7.4-10.4); MONOCYTES # (AUTO) 1.8 X10'3 (0-0.9); NEUTROPHILS % (AUTO) 85.9 % (42-75); PLATELET COUNT 335 X10'3 (140-440); RED BLOOD COUNT 4.47 X10'6 (4.70-6.10); WHITE BLOOD COUNT 16.3 X10'3 (4.5-11.0)
[2021-01-05 07:29] LABS: ALANINE AMINOTRANSFERASE 59 U/L (12-78); ALBUMIN 2.6 G/DL (3.4-5.0); ALBUMIN/GLOBULIN RATIO 0.9 (1.1-1.5); ALKALINE PHOSPHATASE 134 IU/L (46-116); ANION GAP 11 (8-16); ASPARTATE AMINO TRANSFERASE 60 U/L (10-37); BILIRUBIN,TOTAL 0.4 MG/DL (0.1-1.0); BLOOD UREA NITROGEN 33 MG/DL (7-18); BUN/CREATININE RATIO 30.3 (5.4-32.0); CALCIUM 7.9 MG/DL (8.5-10.1); CHLORIDE 95 MMOL/L (99-107); CREATININE 1.09 MG/DL (0.60-1.10); GLUCOSE 131 MG/DL (70-104); POTASSIUM 4.8 MMOL/L (3.5-5.1); SODIUM 128 MMOL/L (135-145); TOTAL CARBON DIOXIDE 22.4 MMOL/L (24-32); TOTAL PROTEIN 5.6 G/DL (6.4-8.2); eGFR 65 ML/MIN
[2021-01-05 07:34] LABS: CHOL/HDL RATIO 2.7 (0.00-4.99); CHOLESTEROL 86 MG/DL (0-200); HDL CHOLESTEROL 32 MG/DL (35-60); LDL CHOLESTEROL 39 MG/DL (50-100); TRIGLYCERIDES 55 MG/DL (20-135)
[2021-01-05] MEDS: methylPREDNISolone sod succ/PF 40mg inj. IV SCH ×2 (07:58→20:16)
[2021-01-05] MEDS: pantoprazole 40mg Tablet.DR PO SCH (07:59)
[2021-01-05] MEDS: heparin, porcine 5000 units/ml vial SQ SCH ×3 (08:00→20:16)
[2021-01-05] MEDS: aspirin 81mg, enteric-coated 1 TAB TABLET.DR PO SCH (08:01)
[2021-01-05] MEDS: lisinopril 5mg tablet PO SCH (08:01)
[2021-01-05] MEDS: docusate sod 100mg capsule PO SCH ×2 (08:01→20:16)
[2021-01-05] MEDS: oxyCODONE/APAP 10/325mg tablet PO PRN ×2 (08:02→20:55)
[2021-01-05] MEDS: normal saline 1000ml 1,000 ML IV SCH ×2 (08:03→19:44)
--- NOTE | 2021-01-05 10:07 | NUR ---
dr GONZALES was paged regarding pt name deondre marcial.on PCU room 24A has BP 110/83, DE 107 ,he has an order for cardizem drip ,ordered by jose manuel Kelly, i want to check with you if he really needs the cardizem drip . SHEWIT [id number]
--- NOTE | 2021-01-05 10:28 | NUR ---
Per Dr. Montano patient needs a bronchoscopy in order to obtain a left lung biopsy. Called [facility] eligibility worker an made him aware.
--- NOTE | 2021-01-05 10:41 | NUR ---
DR. GONZALES was paged regarding -pt name deondre marcial, on PCU room, 24A the lung biopsy procedure for today is cancelled , the team is planning to bronchoscopy. should we put the patient on what kind of diet . thank you GAURAV [phone]
[2021-01-05 11:00] VITALS: BP 109/76
[2021-01-05] MEDS: diltiazem-NS 100mg/100ml 100 ML IV SCH ×2 (14:19→19:45)
[2021-01-05 18:00] VITALS: BP 121/70
[2021-01-05] MEDS ORDERED: normal saline 1000ml 1,000 ML IV ONE (19:45)
[2021-01-05] MEDS: atorvastatin 20mg tablet PO SCH (20:16)
[2021-01-05] MEDS: lactobacillus rhamnosus 10,000 MMU CELLS/CAPSULE PO SCH (20:16)
[2021-01-05] MEDS: CefTRIAXone/D5W-Rocephin 1gm 50 ML IV SCH (20:58)
[2021-01-05] MEDS: azithromycin/NS 500mg/250ml 250 ML IV SCH (21:19)
[2021-01-05] MEDS: temazepam 15mg capsule PO PRN (21:43)
[2021-01-05 22:00] VITALS: BP 111/72
[2021-01-06] VITALS (8 sets, daily range): BP systolic 100–124; BP diastolic 67–86
[2021-01-06] MEDS: diltiazem-NS 100mg/100ml 100 ML IV SCH (03:40)
[2021-01-06] MEDS: LORazepam 1 MG tablet PO PRN ×3 (03:47→20:38)
[2021-01-06] MEDS: azithromycin/NS 500mg/250ml 250 ML IV SCH (05:00)
[2021-01-06] MEDS: normal saline 1000ml 1,000 ML IV SCH ×2 (05:13→14:55)
[2021-01-06] MEDS: CefTRIAXone/D5W-Rocephin 1gm 50 ML IV SCH (05:17)
[2021-01-06 06:00] LABS: BASOPHILS % (AUTO) 0 % (0-1); EOSINOPHILS % (AUTO) 0 % (0-6); HEMATOCRIT 36.2 % (42.0-52.0); LYMPHOCYTES # (AUTO) 0.3 X10'3 (1.1-4.8); LYMPHOCYTES % (AUTO) 1.8 % (21-51); MEAN CORPUSCULAR HGB CONC 33.3 g/dL (33.0-36.5); MEAN PLATELET VOLUME 6.9 FL (7.4-10.4); MONOCYTES # (AUTO) 0.8 X10'3 (0-0.9); MONOCYTES % (AUTO) 4.7 % (2-12); NEUTROPHILS # (AUTO) 16.6 X10'3 (1.8-7.7); NEUTROPHILS % (AUTO) 93.5 % (42-75); PLATELET COUNT 310 X10'3 (140-440); RED BLOOD COUNT 4.16 X10'6 (4.70-6.10); RED CELL DISTRIBUTION WIDTH 14.2 % (11.5-14.5); WHITE BLOOD COUNT 17.7 X10'3 (4.5-11.0)
[2021-01-06 06:17] LABS: ALANINE AMINOTRANSFERASE 73 U/L (12-78); ALBUMIN 2.5 G/DL (3.4-5.0); ALBUMIN/GLOBULIN RATIO 0.8 (1.1-1.5); ALKALINE PHOSPHATASE 123 IU/L (46-116); ANION GAP 9 (8-16); ASPARTATE AMINO TRANSFERASE 55 U/L (10-37); BILIRUBIN,TOTAL 0.4 MG/DL (0.1-1.0); BLOOD UREA NITROGEN 35 MG/DL (7-18); BUN/CREATININE RATIO 32.7 (5.4-32.0); CALCIUM 8.1 MG/DL (8.5-10.1); CHLORIDE 98 MMOL/L (99-107); CREATININE 1.07 MG/DL (0.60-1.10); GLUCOSE 153 MG/DL (70-104); POTASSIUM 5.1 MMOL/L (3.5-5.1); SODIUM 129 MMOL/L (135-145); TOTAL CARBON DIOXIDE 21.9 MMOL/L (24-32); TOTAL PROTEIN 5.5 G/DL (6.4-8.2); eGFR 67 ML/MIN
[2021-01-06] MEDS: heparin, porcine 5000 units/ml vial SQ SCH ×2 (08:00→20:39)
[2021-01-06] MEDS: aspirin 81mg, enteric-coated 1 TAB TABLET.DR PO SCH ×2 (08:00→08:07)
[2021-01-06] MEDS: docusate sod 100mg capsule PO SCH ×3 (08:00→20:00)
[2021-01-06] MEDS: lisinopril 5mg tablet PO SCH (08:06)
[2021-01-06] MEDS: pantoprazole 40mg Tablet.DR PO SCH (08:07)
[2021-01-06] MEDS: methylPREDNISolone sod succ/PF 40mg inj. IV SCH (08:17)
[2021-01-06] MEDS: lactobacillus rhamnosus 10,000 MMU CELLS/CAPSULE PO SCH ×2 (08:49→20:28)
[2021-01-06] MEDS: oxyCODONE/APAP 10/325mg tablet PO PRN ×2 (14:07→20:38)
--- NOTE | 2021-01-06 15:40 | NUR ---
patient resting in bed with daughter in room. Call light with in reach and bed locked and lowered. Will continue to monitor.
[2021-01-06] MEDS: atorvastatin 20mg tablet PO SCH (20:28)
[2021-01-06] MEDS: temazepam 15mg capsule PO PRN (20:38)
[2021-01-07] VITALS (7 sets, daily range): BP systolic 82–133; BP diastolic 62–98
[2021-01-07] MEDS: piperacillin/tazo 3.375gm/50ml 50 ML IV SCH ×2 (01:00→07:10)
[2021-01-07 06:17] LABS: BASOPHILS % (AUTO) 0.2 % (0-1); EOSINOPHILS % (AUTO) 0 % (0-6); HEMATOCRIT 34.5 % (42.0-52.0); HEMOGLOBIN 11.8 g/dl (14.0-17.9); LYMPHOCYTES # (AUTO) 0.4 X10'3 (1.1-4.8); MEAN CORPUSCULAR HEMOGLOBIN 29.4 PG (27.0-31.0); MEAN CORPUSCULAR HGB CONC 34.4 g/dL (33.0-36.5); MEAN CORPUSCULAR VOLUME 85.6 FL (78-98); MEAN PLATELET VOLUME 6.9 FL (7.4-10.4); MONOCYTES # (AUTO) 1.3 X10'3 (0-0.9); MONOCYTES % (AUTO) 6.1 % (2-12); NEUTROPHILS # (AUTO) 18.9 X10'3 (1.8-7.7); NEUTROPHILS % (AUTO) 91.7 % (42-75); PLATELET COUNT 315 X10'3 (140-440); RED BLOOD COUNT 4.03 X10'6 (4.70-6.10); WHITE BLOOD COUNT 20.6 X10'3 (4.5-11.0)
[2021-01-07 06:27] LABS: ANION GAP 8 (8-16); BLOOD UREA NITROGEN 33 MG/DL (7-18); BUN/CREATININE RATIO 36.7 (5.4-32.0); CHLORIDE 101 MMOL/L (99-107); GLUCOSE 137 MG/DL (70-104); POTASSIUM 5.1 MMOL/L (3.5-5.1); SODIUM 131 MMOL/L (135-145)
[2021-01-07 06:28] LABS: ALANINE AMINOTRANSFERASE 146 U/L (12-78); ALBUMIN 2.5 G/DL (3.4-5.0); ALBUMIN/GLOBULIN RATIO 0.9 (1.1-1.5); ALKALINE PHOSPHATASE 125 IU/L (46-116); ASPARTATE AMINO TRANSFERASE 86 U/L (10-37); BILIRUBIN,TOTAL 0.3 MG/DL (0.1-1.0); CALCIUM 8.2 MG/DL (8.5-10.1); TOTAL PROTEIN 5.3 G/DL (6.4-8.2); eGFR 82 ML/MIN
[2021-01-07] MEDS ORDERED: vancomycin/NS 1 GM ADD-VANTAGE 250 ML IV SCH (07:00)
[2021-01-07] MEDS: docusate sod 100mg capsule PO SCH ×2 (07:09→20:00)
[2021-01-07] MEDS: heparin, porcine 5000 units/ml vial SQ SCH ×2 (07:09→20:00)
[2021-01-07] MEDS: lactobacillus rhamnosus 10,000 MMU CELLS/CAPSULE PO SCH ×2 (07:09→20:00)
[2021-01-07] MEDS: aspirin 81mg, enteric-coated 1 TAB TABLET.DR PO SCH (07:09)
[2021-01-07] MEDS: lisinopril 5mg tablet PO SCH (07:10)
[2021-01-07] MEDS: pantoprazole 40mg Tablet.DR PO SCH (07:10)
[2021-01-07] MEDS: LORazepam 1 MG tablet PO PRN ×2 (07:14→19:30)
[2021-01-07] MEDS: ipratropium/albuterol 3ml nebule NEB PRN ×3 (11:24→19:41)
[2021-01-07] MEDS: diltiazem-NS 100mg/100ml 100 ML IV SCH (13:17)
[2021-01-07] MEDS: linezolid 600mg tablet PO SCH ×2 (13:17→20:00)
[2021-01-07] MEDS: piperacillin/tazo 4.5gm/100ml 100 ML IV SCH ×2 (19:18→23:09)
--- NOTE | 2021-01-07 19:19 | NUR ---
place call to pharmacy to inquire about Zosyn dose that was due at 1600 today. Per day shift nurse, Zosyn was DC. Per pharmacy dose was increased from 3.5g to 4.5g. Per pharmacy okay to hang 1600 dose now, skip midnight dose and give the following dose 01/08/21 at 0600.
[2021-01-07] MEDS: temazepam 15mg capsule PO PRN (19:30)
[2021-01-07] MEDS: atorvastatin 20mg tablet PO SCH (21:00)
[2021-01-08 02:00] VITALS: BP 110/62
[2021-01-08] MEDS: LORazepam 1 MG tablet PO PRN ×3 (02:04→14:07)
[2021-01-08] MEDS: oxyCODONE/APAP 10/325mg tablet PO PRN ×2 (02:06→14:07)
[2021-01-08] MEDS: normal saline 1000ml 1,000 ML IV SCH (02:07)
[2021-01-08] MEDS: ipratropium/albuterol 3ml nebule NEB PRN ×4 (03:06→15:33)
[2021-01-08 06:00] VITALS: BP 109/64
[2021-01-08] MEDS ORDERED: VANCOMYCIN LEVEL IV ONE (06:30)
[2021-01-08] MEDS: piperacillin/tazo 4.5gm/100ml 100 ML IV SCH ×2 (06:36→16:28)
[2021-01-08 07:43] LABS: BASOPHILS % (AUTO) 0.1 % (0-1); EOSINOPHILS % (AUTO) 0.1 % (0-6); HEMATOCRIT 36.5 % (42.0-52.0); HEMOGLOBIN 12.2 g/dl (14.0-17.9); LYMPHOCYTES # (AUTO) 0.6 X10'3 (1.1-4.8); LYMPHOCYTES % (AUTO) 3.6 % (21-51); MEAN CORPUSCULAR HEMOGLOBIN 29.2 PG (27.0-31.0); MEAN CORPUSCULAR HGB CONC 33.5 g/dL (33.0-36.5); MEAN CORPUSCULAR VOLUME 87.1 FL (78-98); MEAN PLATELET VOLUME 6.7 FL (7.4-10.4); MONOCYTES # (AUTO) 1.4 X10'3 (0-0.9); MONOCYTES % (AUTO) 8.5 % (2-12); NEUTROPHILS # (AUTO) 14.1 X10'3 (1.8-7.7); NEUTROPHILS % (AUTO) 87.7 % (42-75); PLATELET COUNT 346 X10'3 (140-440); RED BLOOD COUNT 4.19 X10'6 (4.70-6.10); RED CELL DISTRIBUTION WIDTH 14.3 % (11.5-14.5)
[2021-01-08 07:45] LABS: ALANINE AMINOTRANSFERASE 131 U/L (12-78); ALBUMIN 2.5 G/DL (3.4-5.0); ALBUMIN/GLOBULIN RATIO 0.9 (1.1-1.5); ALKALINE PHOSPHATASE 114 IU/L (46-116); ANION GAP 10 (8-16); ASPARTATE AMINO TRANSFERASE 56 U/L (10-37); BILIRUBIN,TOTAL 0.4 MG/DL (0.1-1.0); BLOOD UREA NITROGEN 28 MG/DL (7-18); BUN/CREATININE RATIO 28.9 (5.4-32.0); CALCIUM 7.9 MG/DL (8.5-10.1); CHLORIDE 100 MMOL/L (99-107); CREATININE 0.97 MG/DL (0.60-1.10); GLUCOSE 100 MG/DL (70-104); POTASSIUM 4.6 MMOL/L (3.5-5.1); SODIUM 133 MMOL/L (135-145); TOTAL CARBON DIOXIDE 22.9 MMOL/L (24-32); TOTAL PROTEIN 5.3 G/DL (6.4-8.2); eGFR 75 ML/MIN
[2021-01-08] MEDS: heparin, porcine 5000 units/ml vial SQ SCH (08:00)
[2021-01-08] MEDS: docusate sod 100mg capsule PO SCH (08:00)
[2021-01-08] MEDS: lisinopril 5mg tablet PO SCH (08:00)
[2021-01-08] MEDS: aspirin 81mg, enteric-coated 1 TAB TABLET.DR PO SCH (08:00)
[2021-01-08] MEDS: pantoprazole 40mg Tablet.DR PO SCH (08:05)
[2021-01-08] MEDS: lactobacillus rhamnosus 10,000 MMU CELLS/CAPSULE PO SCH (08:06)
[2021-01-08] MEDS: diltiazem-NS 100mg/100ml 100 ML IV SCH (08:11)
[2021-01-08] MEDS: linezolid 600mg tablet PO SCH (08:14)
--- NOTE | 2021-01-08 09:39 | NUR ---
PAGER ID: [phone] MESSAGE: [phone] John Bustamante- Held Lisinopril 5mg QD for BP 100/60. On Cardizem 5mg/hr. Now BP 117/70, HR 94. Citlaly Arenas71
--- NOTE | 2021-01-08 10:41 | NUR ---
Dr. Dela Cruz states to decrease Cardizem drip to 3mg/hr and to call in 2 hours to get order for PO cardizem
[2021-01-08 11:00] VITALS: BP 128/77
--- NOTE | 2021-01-08 12:43 | NUR ---
PAGER ID: [phone] MESSAGE: [id number] John Bustamante. Given PO Cardizem now? Citlaly [phone]
--- NOTE | 2021-01-08 14:16 | NUR ---
Noted pt receiving Zyvox. Pt pending discharge at this time. Written low tyramine nutrition therapy education with RD contact information placed in patient's chart. Will remain available. Addendum: 01/08/21 at [address] Amended: Links added.
[2021-01-08 15:00] VITALS: BP 132/82
--- NOTE | 2021-01-08 18:47 | NUR ---
Report given to Shania DORMAN at [facility]. Report also given to [employer] for transfer. PIV stayed x2 for continued IV antibiotic at [facility]. All possessions with patient and transferred off unit via EMS.
[2021-01-08] MEDS ORDERED: diltiazem SR 60mg capsule (twice daily) PO SCH (20:00)
== END 2021-01-08 18:30 | DRG 871 ==
LOC: ER 18:55 → ED HOLD 23:00 → PCU 3S 01-05 00:49
PROVIDERS: ADMIT Family Medicine; ATTEND Internal Medicine
PROC: B32T1ZZ Computerized Tomography (CT Scan) of Left Pulmonary Artery using Low Osmolar Contrast (ICD-10-PCS; 2021-01-04)
PROC: B3201ZZ Computerized Tomography (CT Scan) of Thoracic Aorta using Low Osmolar Contrast (ICD-10-PCS; 2021-01-04)
PROC: B32S1ZZ Computerized Tomography (CT Scan) of Right Pulmonary Artery using Low Osmolar Contrast (ICD-10-PCS; 2021-01-04)
PROC: 5A0935A Assistance with Respiratory Ventilation, Less than 24 Consecutive Hours, High Flow/Velocity Cannula (ICD-10-PCS; principal; 2021-01-05)
PROC: 5A0945A Assistance with Respiratory Ventilation, 24-96 Consecutive Hours, High Flow/Velocity Cannula (ICD-10-PCS; 2021-01-06)
DX: A41.9 Sepsis, unspecified organism (principal); J18.9 Pneumonia, unspecified organism; I21.A1 Myocardial infarction type 2; I50.33 Acute on chronic diastolic (congestive) heart failure; E87.2 Acidosis; I48.92 Unspecified atrial flutter; J44.0 Chronic obstructive pulmonary disease with (acute) lower respiratory infection; J44.1 Chronic obstructive pulmonary disease with (acute) exacerbation; J96.11 Chronic respiratory failure with hypoxia; E87.1 Hypo-osmolality and hyponatremia; J84.10 Pulmonary fibrosis, unspecified; Z96.641 Presence of right artificial hip joint; G62.0 Drug-induced polyneuropathy; M19.90 Unspecified osteoarthritis, unspecified site; M21.371 Foot drop, right foot; T45.1X5A Adverse effect of antineoplastic and immunosuppressive drugs, initial encounter; R22.2 Localized swelling, mass and lump, trunk; Z20.822 Contact with and (suspected) exposure to COVID-19; E78.5 Hyperlipidemia, unspecified; I11.0 Hypertensive heart disease with heart failure; I25.10 Atherosclerotic heart disease of native coronary artery without angina pectoris; J38.00 Paralysis of vocal cords and larynx, unspecified; Z85.118 Personal history of other malignant neoplasm of bronchus and lung; I25.2 Old myocardial infarction; Z85.71 Personal history of Hodgkin lymphoma; Z87.891 Personal history of nicotine dependence; Z92.21 Personal history of antineoplastic chemotherapy; Z92.3 Personal history of irradiation; Z99.81 Dependence on supplemental oxygen; Z79.899 Other long term (current) drug therapy
CPT/HCPCS: 36415; 71045; 71275; 76937; 80053; 80061; 82550; 83605; 83690; 83735; 83880; 84100; 84145; 84443; 84484; 85025; 85379; 85610; 85730; 87040; 87081; 87635; 93005; 93308; 94640; 94760; 96365; 96366; 96368; 97162; 97530; 99285; C9803; G0378; J0456; J0696; J1644; J2543; J2920; J3370; J3490; J7030; Q9967